=== PATIENT | male | born 1940 | race Caucasian/White ===

== ENCOUNTER → 2020-11-29 | Emergency (ER) | payer OTHER ==
[~2020-11-29] MED LIST: ASPIRIN EC325 M1 PO; ASPIRIN EC81 M1 PO; ATORVASTATIN CA40 MG PO; FISH OIL 1,0001 EAC5 PO; FLOMAX0.4 MG PO; LISINOPRIL10 MG PO; LISINOPRIL20 MG; MULTIVITAMINS PO; NORCO 5-325 TA1 EACH PO; OMEPRAZOLE20 M2 PO; SIMVASTATIN80 MG PO; ZOLOFT50 MG PO
[2020-11-29 17:21] VITALS: BP 133/81
== END ==
LOC: ER 16:44
DX: R20.2 Paresthesia of skin (principal); I10 Essential (primary) hypertension; E11.9 Type 2 diabetes mellitus without complications; M19.90 Unspecified osteoarthritis, unspecified site; Z53.21 Procedure and treatment not carried out due to patient leaving prior to being seen by health care provider